=== PATIENT | female | born 1990 | race Caucasian/White ===

== ENCOUNTER 2021-10-02 13:34 | Emergency (ER) | payer BC, SELFPAY ==
[2021-10-02 14:15] VITALS: BP 128/96; PULSE 97; RESP 18; TEMP 37.1; O2SAT 92; BMI 36.5
--- NOTE | 2021-10-02 14:35 | CRLHL7_ITS ---
For Patients: As a result of the Cures Act, medical imaging exams and procedure reports are released immediately into your electronic medical record. You may view this report before your referring provider. If you have questions, please contact your health care provider. INDICATION: Shortness of breath, cough. TECHNIQUE: Chest 1 views. COMPARISON: None. FINDINGS: Lungs: Clear lungs. No consolidation. Pleura: No pleural effusion or pneumothorax. Heart and Mediastinum: The cardiomediastinal silhouette is normal. The vessels are unremarkable. Bones: Unremarkable. IMPRESSION: No acute cardiopulmonary disease. Dictated by Dexter Perea MD @ 10/02/2021 3:21:04 PM (Electronically Signed)
[2021-10-02] MEDS: IPRAT-ALBUT 0.5-2.5 MG/3 ML NEB 1 NEB IH (14:59)
[2021-10-02 15:22] VITALS: PULSE 84; RESP 18; O2SAT 92
[2021-10-02 15:24] LABS: PCR FLU A Negative PCR FLU A (Negative); PCR FLU B Negative PCR FLU B (Negative)
[2021-10-02 15:31] LABS: SARS PCR* Negative SARS-CoV-2 (Negative)
--- NOTE | 2021-10-02 15:34 | ED_ITS ---
HPI - General Adult General Chief complaint: Shortness of Breath/Dyspnea Stated complaint: Trouble Breathing Strep+ Time Seen by Provider: 10/02/21 13:41 Source: patient Mode of arrival: ambulatory Limitations: no limitations History of Present Illness HPI narrative: 31-year-old female coming in today complaining shortness of breath. She states that she was diagnosed with strep pharyngitis this week, and feels that her strep throat is getting better however she feels more short of breath. She can feel short of breath at rest but certainly with activity. She states that she has never been diagnosed with asthma however uses inhaler about twice a month depending on the air quality. She denies fevers or chills. No nausea or vomiting. She has a mild cough but nothing significant or productive. No difficulty lying down at night. No difficulty breathing, swallowing or taking deep breaths. Related Data Home Medications Medication Instructions Recorded Confirmed albuterol sulfate 2.5 mg/3 mL mg 10/02/21 (0.083 %) solution for nebulization albuterol sulfate 90 mcg/actuation inhalation 10/02/21 aerosol inhaler amoxicillin 875 mg-potassium tab 10/02/21 clavulanate 125 mg tablet desogestrel 0.15 mg-ethinyl tab 10/02/21 estradiol 0.03 mg tablet (Isibloom) Previous Rx's Medication Instructions Recorded ipratropium 0.5 mg-albuterol 3 mg 3 ml inhalation Q4H PRN #90 mL 10/02/21 (2.5 mg base)/3 mL nebulization soln prednisone 20 mg tablet 20 mg PO DAILY 5 days #5 tabs 10/02/21 Allergies Allergy/AdvReac Type Severity Reaction Status Date / Time No Known Drug Allergies Allergy Verified 10/02/21 14:13 Review of Systems Status of ROS: Reports: 10 or more systems reviewed and unremarkable except as noted in History and below [facility] Medical History No significant past medical history Surgical History History of delivery Social History Smoking Status: Current some day smoker What tobacco products do you use: cigarettes Do you use any of these nicotine containing products: None Second hand tobacco smoke exposure: No How often do you have a drink containing alcohol: monthly or less How many standard drinks containing alcohol do you have on a typical day: 1 or 2 How often do you have six or more drinks on one occasion: Never AUDIT-C Alcohol total score: 1 Non-prescribed substance use: denies use Exam Narrative: Exam Narrative: Well-nourished well-developed patient in no acute distress. Alert and oriented. Answers questions appropriately. Mood and affect are appropriate. Thoughts are goal oriented and rational. No tangential or magical thinking noted. Patient speaks in full sentences without needing to catch her breath. Voice sounds normal. Speech is not slurred or pressured. HEENT: Normocephalic atraumatic. Pupils are equally round reactive to light. Extraocular muscles are intact. Conjunctivae are moist without any icterus noted. Moist mucous membranes. Posterior pharynx is normal. Neck is soft without any lymphadenopathy or thyromegaly. No masses are appreciated. Cardiovascular: Heart is regular rate and rhythm S1 and S2 are present without any murmurs. Lungs: Decreased breath sounds and bilateral wheezing. Abdomen: Soft and nontender nondistended with normal bowel sounds. No guarding or rebound. No masses or organomegaly appreciated. Extremities: Bilateral lower extremities are without edema. Normal DP and PT pulses. Skin: Well perfused without any obvious rashes. Const: Vital Signs, click to edit/add: Vital Signs - 24 hr 10/02/21 14:15 10/02/21 15:22 Temperature 98.7 F Pulse Rate [Right Pulse Oximeter] 97 84 Respiratory Rate 18 18 Blood Pressure [Ri ght Upper Arm] 128/96 H Pulse Oximetry 92 92 Oxygen Delivery Me thod Room Air Room Air Course Course Hospital Course: Chest x-ray was clear, COVID testing negative. Patient received a DuoNeb and did feel report improvement. Vital Signs Vital signs: Initial Vital Signs Temperature 98.7 F 10/02/21 14:15 Temperature Source Temporal Artery Scan 10/02/21 14:15 Pulse Rate 97 10/02/21 14:15 Respiratory Rate 18 10/02/21 14:15 Blood Pressure 128/96 H 10/02/21 14:15 Blood Pressure Mean 106 10/02/21 14:15 Blood Pressure Position Sitting 10/02/21 14:15 Pulse Oximetry 92 10/02/21 14:15 Oxygen Delivery Method 10/02/21 14:15 Vital Signs Temperature 98.7 F 10/02/21 14:15 Pulse Rate 97 10/02/21 14:15 Respiratory Rate 18 10/02/21 14:15 Blood Pressure 128/96 H 10/02/21 14:15 Pulse Oximetry 92 10/02/21 14:15 Oxygen Delivery Method 10/02/21 14:15 Temperature 98.7 F 10/02/21 14:15 Pulse Rate 84 10/02/21 15:22 Respiratory Rate 18 10/02/21 15:22 Blood Pressure 128/96 H 10/02/21 14:15 Pulse Oximetry 92 10/02/21 15:22 Oxygen Delivery Method 10/02/21 15:22 Medical Decision Making MDM Narrative Medical decision making narrative: Reactive airways, likely secondary to undiagnosed asthma. Patient will be sent home with DuoNebs and prednisone. Recommend she follow up with primary care provider this coming week certainly return to the ER if she develops increasing shortness of breath. Patient was agreeable and had no other questions or concerns. Medical Records Medical records reviewed: Yes I reviewed the patient's medical records Lab Data Lab results reviewed: Yes I reviewed the patient's lab results Labs: Lab Results 10/02/21 Range/Units 14:40 SARS-CoV-2 (PCR) Negative SARS-CoV-2 (Negative) Influenza Type A (PCR) Negative PCR FLU A (Negative) Influenza Type B (PCR) Negative PCR FLU B (Negative) Imaging Data Chest x-ray: Attestation: I have reviewed the pertinent imaging results. My impression: Normal Radiologist's impression: FINDINGS: Lungs: Clear lungs. No consolidation. Pleura: No pleural effusion or pneumothorax. Heart and Mediastinum: The cardiomediastinal silhouette is normal. The vessels are unremarkable. Bones: Unremarkable. IMPRESSION: No acute cardiopulmonary disease. Discharge Plan Discharge Clinical Impression: Diffuse wheezing, Acute asthma exacerbation Patient Disposition: Home, Self-Care Condition: Improved Additional Instructions: Start steroid, take as directed. Okay to use nebulizer as needed. Follow-up with your primary care provider this coming week. Return to the ER if you have increasing shortness of breath. Prescriptions: New ipratropium-albuterol 0.5 mg-3 mg(2.5 mg base)/3 mL solution for nebulization 3 ml inhalation Q4H PRNQty: 90 0RF prednisone 20 mg tablet 20 mg PO DAILY 5 Days Qty: 5 0RF No Action desogestrel-ethinyl estradiol [Isibloom] 0.15-0.03 mg tablet albuterol sulfate 2.5 mg /3 mL (0.083 %) solution for nebulization albuterol sulfate 90 mcg/actuation HFA aerosol inhaler INHALATION amoxicillin-pot clavulanate 875-125 mg tablet Follow Up/Referrals: Shantell Lazaro MD [Primary Care Provider] - Stand Alone Forms: [employer] Info Instructions
== END 2021-10-02 16:36 | disposition home or self-care (01) ==
PROVIDERS: Emergency Provider Family Medicine; PCP Family Medicine
DX: J45.901 Unspecified asthma with (acute) exacerbation (principal)
CPT/HCPCS: 71045; 87502; 87635; 94640; 99283; 99284